=== PATIENT | female | born 1990 | race African-American/Black ===

== ENCOUNTER 2020-06-02 00:10 | Day surgery (SDC) | payer MEDICAID ==
[2020-06-02 00:48] VITALS: BMI 44.9
[2020-06-02] MEDS ORDERED: hydrALAZINE 20 MG/ML VIAL SLOW IVP PRN (01:11)
[2020-06-02] MEDS ORDERED: Acetaminophen/Codeine 30-300mg Tablet PO PRN (01:20)
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
--- NOTE | 2020-06-02 01:30 | PDOC.BPN ---
- Brief Progress Note Encounter Date: 06/02/20 Encounter Time: 01:29 Lab and chart from the first ED eval reviewed
== END 2020-06-02 11:05 | disposition home or self-care (01) ==
LOC: L&D/OP 00:10
PROVIDERS: ATTEND Family Medicine
DX: Z04.1 Encounter for examination and observation following transport accident (principal); O09.293 Supervision of pregnancy with other poor reproductive or obstetric history, third trimester; O34.211 Maternal care for low transverse scar from previous cesarean delivery; Z3A.36 36 weeks gestation of pregnancy; Z91.013 Allergy to seafood; V89.2XXA Person injured in unspecified motor-vehicle accident, traffic, initial encounter
CPT/HCPCS: 36415; 86900; 86901; 99285